=== PATIENT | female | born 1975 | race Caucasian/White ===

== ENCOUNTER 2018-12-13 00:31 | Emergency (ER) | payer SELFPAY ==
[~2018-12-13] VITALS: Ht 175.3 cm; Wt 72.6 kg
[~2018-12-13 00:31] MED LIST: DIPH25CA39; NITR100C44; PROZAC
[2018-12-13 00:35] VITALS: BP 121/73
== END 2018-12-13 03:43 | disposition left against medical advice (07) ==
LOC: ER 00:36
DX: M79.89 Other specified soft tissue disorders (principal); Z53.21 Procedure and treatment not carried out due to patient leaving prior to being seen by health care provider

== ENCOUNTER 2019-11-07 02:35 | Emergency (ER) | payer SELFPAY ==
[~2019-11-07] VITALS: Ht 175.3 cm; Wt 79.4 kg
[2019-11-07 06:38] VITALS: BP 115/82
== END 2019-11-07 06:52 | disposition home or self-care (01) ==
LOC: ER 02:38
DX: J20.9 Acute bronchitis, unspecified (principal); F17.210 Nicotine dependence, cigarettes, uncomplicated
CPT/HCPCS: 71046